=== PATIENT | female | born 1945 | race Caucasian/White ===

== ENCOUNTER 2016-07-28 22:25 | Emergency (ER) | payer OTHER ==
[~2016-07-28] VITALS: Ht 170.2 cm; Wt 107.0 kg
[~2016-07-28 22:25] MED LIST: ACCUPRIL20 MG PO; ACCURETIC 201 TABLE1 PO; ADVAIR 250/501 DISK IH; Advair HFA 45/21 IH; Aspirin E.C. PO; BACTRIM,SEPT1 TABLET PO; DESYREL100 MG PO; HYDROCODON-ACE1 EAC7 PO; Hydrodiuril,Oretic,E PO; K-DUR20 MEQ PO; Keflex PO; LASIX20 MG PO; LASIX40 MG PO; LEXAPRO10 MG PO; LEXAPRO20 MG PO; Lasix PO; Milk Of Magnesia,MOM PO; NAPROSYN500 MG PO; PERCOCET 10/1 TABLET PO; QUINAPRIL-HCTZ1 EAC2 PO; SPIRIVA1 INHALATI IH; TRAZODONE HCL50 MG PO; ZESTORETIC 20-1 EAC1 PO
[2016-07-28 23:04] LABS: HEMATOCRIT 42.3 % (36.0-46.0); MCH 26.6 PG (29.0-34.0); MCHC 30.7 G/DL (30.0-36.0); MCV 86.7 FL (83-99); MEAN PLAT.VOLUME 12.3 uM^3 (9.5-12.4); PLATELET COUNT 269 K/uL (156-360); RBC DIS.WIDTH-CV 13.9 % (11.8-14.6); RBC DIS.WIDTH-SD 43.4 % (39-53); RED BLOOD COUNT 4.88 M/uL (3.80-5.20); WHITE BLOOD COUNT 6.2 K/uL (4.1-10.2)
[2016-07-28 23:14] LABS: CHLORIDE 102 mEq/L (99-109); POTASSIUM 2.9 mEq/L (3.7-5.4); SODIUM 141 mEq/L (136-147)
[2016-07-28 23:16] LABS: GLUCOSE 118 mg/dL (70-99)
[2016-07-28 23:17] LABS: ANION GAP 13 MEQ/L (2-14)
[2016-07-28 23:18] LABS: TOTAL BILIRUBIN 0.9 mg/dL (0.0-1.0)
[2016-07-28 23:19] LABS: ALKALINE PHOSPHATASE 88 IU/L (3-129)
[2016-07-28 23:20] LABS: GFR ESTIMATE (CALCULATED) 43 mL/min/
[2016-07-28 23:21] LABS: UREA NITROGEN (BUN) 20 mg/dL (9-23)
[2016-07-29] MEDS ORDERED: ZOFRAN4 MG PO (01:49)
[2016-07-29 02:40] VITALS: BP 142/75
== END 2016-07-29 03:00 | disposition home or self-care (01) ==
LOC: EME 22:25
DX: R10.9 Unspecified abdominal pain (principal); R19.7 Diarrhea, unspecified; R11.2 Nausea with vomiting, unspecified; E86.0 Dehydration; I11.0 Hypertensive heart disease with heart failure; I50.9 Heart failure, unspecified; J45.909 Unspecified asthma, uncomplicated; K21.9 Gastro-esophageal reflux disease without esophagitis; Z96.653 Presence of artificial knee joint, bilateral
CPT/HCPCS: 74177; 80053; 81003; 83605; 83630; 83690; 85027; 87177; 87493; 87506; 93005; 99281; 99284; J2405; J7030

== ENCOUNTER 2016-08-12 10:59 | Emergency (ER) | payer OTHER ==
[~2016-08-12] VITALS: Ht 170.2 cm; Wt 102.0 kg
[~2016-08-12 10:59] MED LIST changes: +ZOFRAN4 MG PO
[2016-08-12 12:17] LABS: HEMATOCRIT 42.4 % (36.0-46.0); MCHC 33.3 G/DL (30.0-36.0); MCV 90.2 FL (83-99); MEAN PLAT.VOLUME 10.5 uM^3 (9.5-12.4); PLATELET COUNT 222 K/uL (156-360); RBC DIS.WIDTH-CV 13.2 % (11.8-14.6); RBC DIS.WIDTH-SD 42.6 % (39-53)
[2016-08-12 12:24] LABS: WHITE BLOOD COUNT 11.9 K/uL (4.1-10.2)
[2016-08-12 12:35] LABS: CHLORIDE 102 mEq/L (99-109); POTASSIUM 3.7 mEq/L (3.7-5.4); SODIUM 143 mEq/L (136-147)
[2016-08-12 12:37] LABS: GLUCOSE 106 mg/dL (70-99)
[2016-08-12 12:38] LABS: ANION GAP 10 MEQ/L (2-14)
[2016-08-12 12:39] LABS: TOTAL BILIRUBIN 0.7 mg/dL (0.0-1.0)
[2016-08-12 12:41] LABS: ALKALINE PHOSPHATASE 88 IU/L (3-129); GFR ESTIMATE (CALCULATED) 43 mL/min/
[2016-08-12 12:42] LABS: UREA NITROGEN (BUN) 17 mg/dL (9-23)
[2016-08-12 16:48] LABS: ADD MIUA? YES; BILIRUBIN NEGATIVE; BLOOD SMALL; COLOR YELLOW ((YELLOW)); GLUCOSE (STRIP) NEGATIVE; KETONES NEGATIVE; LEUKOCYTES NEGATIVE; NITRITE NEGATIVE; PROTEIN (STRIP) 30; SPECIFIC GRAVITY 1.023 (1.000-1.030); UROBILINOGEN 0.2 MG/DL (0.2-1.0)
[2016-08-12] MEDS ORDERED: ZOFRAN ODT4 MG PO (16:55)
[2016-08-12] MEDS ORDERED: LOMOTIL TABLET1 EACH PO (16:55)
[2016-08-12 17:00] LABS: BACTERIA RARE /HPF; EPITHELIAL CELLS 1+ /HPF; HYALINE CASTS 0-5 /LPF; MUCUS TRACE /LPF; RED BLOOD CELLS 20-30 /HPF (0-5); UCUL ADDED? NO; WHITE BLOOD CELLS 0-5 /HPF (0-5)
[2016-08-12 17:35] VITALS: BP 149/69
== END 2016-08-12 17:48 | disposition home or self-care (01) ==
LOC: EME 10:59
DX: R19.7 Diarrhea, unspecified (principal); Z91.018 Allergy to other foods; J45.909 Unspecified asthma, uncomplicated; I50.9 Heart failure, unspecified; I10 Essential (primary) hypertension; Z96.651 Presence of right artificial knee joint; Z96.652 Presence of left artificial knee joint; Z90.710 Acquired absence of both cervix and uterus
CPT/HCPCS: 74176; 80053; 81003; 85027; 99281; 99285; J3010; J7030

== ENCOUNTER 2016-10-10 18:39 | Emergency (ER) | payer OTHER ==
[~2016-10-10] VITALS: Ht 170.2 cm; Wt 119.5 kg
[~2016-10-10 18:39] MED LIST changes: +LOMOTIL TABLET1 EACH PO; +ZOFRAN ODT4 MG PO
[2016-10-10 19:46] LABS: HEMATOCRIT 40.5 % (36.0-46.0); MCH 29.9 PG (29.0-34.0); MCHC 33.3 G/DL (30.0-36.0); MCV 89.8 FL (83-99); MEAN PLAT.VOLUME 10.3 uM^3 (9.5-12.4); PLATELET COUNT 215 K/uL (156-360); RBC DIS.WIDTH-CV 12.8 % (11.8-14.6); RBC DIS.WIDTH-SD 42.3 % (39-53); RED BLOOD COUNT 4.51 M/uL (3.80-5.20); WHITE BLOOD COUNT 9.2 K/uL (4.1-10.2)
[2016-10-10 19:58] LABS: CHLORIDE 103 mEq/L (99-109); POTASSIUM 3.2 mEq/L (3.7-5.4); SODIUM 143 mEq/L (136-147)
[2016-10-10 20:00] LABS: GLUCOSE 105 mg/dL (70-99)
[2016-10-10 20:01] LABS: ANION GAP 11 MEQ/L (2-14)
[2016-10-10 20:04] LABS: GFR ESTIMATE (CALCULATED) 52 mL/min/
[2016-10-10 20:05] LABS: UREA NITROGEN (BUN) 24 mg/dL (9-23)
[2016-10-10 20:06] LABS: URIC ACID 9.8 mg/dL (3.1-9.2)
[2016-10-10] MEDS ORDERED: COLCHICINE0.6 M1 PO (20:21)
[2016-10-10] MEDS ORDERED: PREDNISONE20 MG PO (20:22)
[2016-10-10] MEDS ORDERED: CLEOCIN300 MG PO (20:22)
[2016-10-10 20:40] VITALS: BP 125/73
== END 2016-10-10 20:41 | disposition home or self-care (01) ==
LOC: EME 18:39
PROVIDERS: Emergency Medicine
DX: M10.9 Gout, unspecified (principal); I10 Essential (primary) hypertension; Z96.653 Presence of artificial knee joint, bilateral
CPT/HCPCS: 80048; 84550; 85027; 99281; 99284; J7512

== ENCOUNTER 2016-10-28 11:25 | Inpatient (IN) | payer OTHER ==
[~2016-10-28] VITALS: Ht 170.2 cm; Wt 117.1 kg
[~2016-10-28 11:25] MED LIST changes: +CLEOCIN300 MG PO; +COLCHICINE0.6 M1 PO; +PREDNISONE20 MG PO
[2016-10-28 12:10] LABS: HEMATOCRIT 40.6 % (36.0-46.0); MCH 30.4 PG (29.0-34.0); MCHC 33.3 G/DL (30.0-36.0); MCV 91.4 FL (83-99); MEAN PLAT.VOLUME 10.6 uM^3 (9.5-12.4); PLATELET COUNT 208 K/uL (156-360); RBC DIS.WIDTH-CV 13.6 % (11.8-14.6); RED BLOOD COUNT 4.44 M/uL (3.80-5.20); WHITE BLOOD COUNT 9.8 K/uL (4.1-10.2)
[2016-10-28 12:21] LABS: CHLORIDE 99 mEq/L (99-109); POTASSIUM 3.2 mEq/L (3.7-5.4); SODIUM 137 mEq/L (136-147)
[2016-10-28 12:23] LABS: GLUCOSE 104 mg/dL (70-99)
[2016-10-28 12:24] LABS: ANION GAP 10 MEQ/L (2-14)
[2016-10-28 12:26] LABS: GFR ESTIMATE (CALCULATED) 43 mL/min/
[2016-10-28 12:27] LABS: UREA NITROGEN (BUN) 29 mg/dL (9-23)
[2016-10-28 12:31] LABS: TROP-I INTERPRETATION NEGATIVE; TROPONIN-I < 0.01 ng/mL (0.0-0.30)
[2016-10-28] MEDS ORDERED: ZITHROMAX Z-PA250 MG PO (14:59)
[2016-10-28] MEDS ORDERED: PREDNISONE50 MG PO (14:59)
[2016-10-28] MEDS ORDERED: CYANOCOBALAM1000 MCG PO (15:33)
[2016-10-28] MEDS ORDERED: LORAZEPAM0.5 MG PO (15:33)
[2016-10-28] MEDS ORDERED: ZESTORETIC 20-1 EAC1 PO (15:33)
[2016-10-28] MEDS ORDERED: VENLAFAXINE HC150 M1 PO (15:33)
[2016-10-28] MEDS ORDERED: ASCORBIC ACID500 M3 PO (15:34)
[2016-10-28] MEDS ORDERED: ADVIL,NUPRIN,M200 MG PO (15:34)
[2016-10-28] MEDS ORDERED: PRISTIQ100 MG PO (15:36)
[2016-10-28 20:30] VITALS: BP 107/59
[2016-10-28 23:40] VITALS: BP 128/58
[2016-10-29 03:00] VITALS: BP 138/58
[2016-10-29 07:00] LABS: EOSINOPHIL (%) 0 % (0-5); HEMATOCRIT 37.8 % (36.0-46.0); IMMATURE GRANULOCYTE (%) 0.5 % (0.0-0.7); INSTRUMENT ABS NEUTROPHIL CT 5.9 K/uL; LYMPHOCYTE COUNT 0.2 K/uL (1.0-2.8); MCH 29.4 PG (29.0-34.0); MCHC 32.3 G/DL (30.0-36.0); MCV 91.1 FL (83-99); MEAN PLAT.VOLUME 10.6 uM^3 (9.5-12.4); MONOCYTE (%) 1.4 % (3-12); MONOCYTE COUNT 0.1 K/uL (0-0.8); NEUTROPHIL (%) 94.4 % (45-76); NEUTROPHIL COUNT 5.9 K/uL (1.8-6.4); PLATELET COUNT 180 K/uL (156-360); RBC DIS.WIDTH-CV 13.5 % (11.8-14.6); RBC DIS.WIDTH-SD 45.3 % (39-53); RED BLOOD COUNT 4.15 M/uL (3.80-5.20)
[2016-10-29 07:02] LABS: WHITE BLOOD COUNT 6.3 K/uL (4.1-10.2)
[2016-10-29 07:07] LABS: Estimated Average Glucose 103 mg/dL (70-123); HEMOGLOBIN A1c (GLYCOHEMOGLOB) 5.2 % HGB (Below 5.7)
[2016-10-29 07:21] LABS: ALKALINE PHOSPHATASE 67 IU/L (3-129); ANION GAP 11 MEQ/L (2-14); CHLORIDE 100 MEQ/L (99-109); GFR ESTIMATE (CALCULATED) 47 mL/min/; HDL CHOLESTEROL 47 MG/DL (Desirable>=50); LDL CHOLESTEROL 102 mg/dL (Desirable<100); NON-HDL CHOLESTEROL 113 mg/dL (Desirable<160); POTASSIUM 3.5 MEQ/L (3.7-5.4); SAMPLE HEMOLYSIS CHECK 0; SAMPLE ICTERIC CHECK 0; SAMPLE LIPEMIA CHECK 0; SODIUM 139 MEQ/L (136-147); TOTAL BILIRUBIN 0.5 MG/DL (0.0-1.0); TOTAL CHOLESTEROL 160 mg/dL (Desirable<200); TRIGLYCERIDES 57 MG/DL (Normal: <150); UREA NITROGEN (BUN) 27 mg/dL (9-23)
[2016-10-29 07:25] LABS: GLUCOSE 164 mg/dL (70-99)
[2016-10-29 08:51] VITALS: BP 120/54
[2016-10-29 11:44] LABS: TROP-I INTERPRETATION NEGATIVE; TROPONIN-I < 0.01 ng/mL (0.0-0.30)
[2016-10-29 17:00] VITALS: BP 113/51
[2016-10-29 19:40] VITALS: BP 102/57
[2016-10-29 19:46] LABS: TROP-I INTERPRETATION NEGATIVE; TROPONIN-I < 0.01 ng/mL (0.0-0.30)
[2016-10-29 23:00] VITALS: BP 117/58
[2016-10-30 01:07] LABS: TROP-I INTERPRETATION NEGATIVE; TROPONIN-I < 0.01 ng/mL (0.0-0.30)
[2016-10-30 03:15] VITALS: BP 117/54
[2016-10-30 07:11] VITALS: BP 135/54
[2016-10-30 07:13] LABS: ANION GAP 11 MEQ/L (2-14); CHLORIDE 96 MEQ/L (99-109); GFR ESTIMATE (CALCULATED) 43 mL/min/; GLUCOSE 147 mg/dL (70-99); POTASSIUM 3.5 MEQ/L (3.7-5.4); SAMPLE HEMOLYSIS CHECK 0; SAMPLE ICTERIC CHECK 0; SAMPLE LIPEMIA CHECK 0; SODIUM 134 MEQ/L (136-147); UREA NITROGEN (BUN) 36 mg/dL (9-23)
[2016-10-30 11:35] VITALS: BP 100/52
[2016-10-30 15:35] VITALS: BP 118/53
[2016-10-30 19:00] VITALS: BP 105/51
[2016-10-30 23:00] VITALS: BP 115/59
[2016-10-31 03:30] VITALS: BP 141/65
[2016-10-31 06:32] LABS: ANION GAP 10 MEQ/L (2-14); CHLORIDE 99 MEQ/L (99-109); GFR ESTIMATE (CALCULATED) 34 mL/min/; GLUCOSE 173 mg/dL (70-99); POTASSIUM 3.5 MEQ/L (3.7-5.4); SAMPLE HEMOLYSIS CHECK 0; SAMPLE ICTERIC CHECK 0; SAMPLE LIPEMIA CHECK 0; SODIUM 136 MEQ/L (136-147); UREA NITROGEN (BUN) 54 mg/dL (9-23)
[2016-10-31 09:20] VITALS: BP 100/53
[2016-10-31] MEDS ORDERED: DELTASONE20 M1 PO (11:29)
[2016-10-31] MEDS ORDERED: DOXYCYCLINE HY100 MG PO (11:29)
[2016-10-31] MEDS ORDERED: STIOLTO RESPIMAT4 GM IH (11:29)
[2016-10-31] MEDS ORDERED: CARDIZEM CD180 MG PO (11:30)
[2016-10-31 12:09] VITALS: BP 110/50
== END 2016-10-31 14:47 | disposition home or self-care (01) | DRG 192 ==
LOC: EME 11:25 → 4EAST 16:30 → EDOF 16:30 → 4EAST 21:20
PROVIDERS: Family Medicine
DX: J44.1 Chronic obstructive pulmonary disease with (acute) exacerbation (principal); I48.91 Unspecified atrial fibrillation; I10 Essential (primary) hypertension; E04.2 Nontoxic multinodular goiter; F41.8 Other specified anxiety disorders; M19.90 Unspecified osteoarthritis, unspecified site; R55 Syncope and collapse; E78.5 Hyperlipidemia, unspecified; E87.6 Hypokalemia; R73.9 Hyperglycemia, unspecified; R41.82 Altered mental status, unspecified
CPT/HCPCS: 70450; 71020; 71275; 80048; 80053; 80061; 83036; 84439; 84443; 84484; 85025; 85027; 93005; 93306; 93880; 94640; 94640 76; 94760; 99202; 99281; 99285; J1956; J2930; J7512

== ENCOUNTER 2016-11-27 18:18 | Emergency (ER) | payer OTHER ==
[~2016-11-27] VITALS: Ht 170.2 cm; Wt 125.8 kg
[~2016-11-27 18:18] MED LIST changes: +ADVIL,NUPRIN,M200 MG PO; +ASCORBIC ACID500 M3 PO; +CARDIZEM CD180 MG PO; +CYANOCOBALAM1000 MCG PO; +DELTASONE20 M1 PO; +DOXYCYCLINE HY100 MG PO; +LORAZEPAM0.5 MG PO; +PREDNISONE50 MG PO; +PRISTIQ100 MG PO; +STIOLTO RESPIMAT4 GM IH; +VENLAFAXINE HC150 M1 PO; +ZITHROMAX Z-PA250 MG PO
[2016-11-27 18:59] LABS: HEMATOCRIT 36.1 % (36.0-46.0); MCH 30.4 PG (29.0-34.0); MCV 92.1 FL (83-99); MEAN PLAT.VOLUME 9.3 uM^3 (9.5-12.4); PLATELET COUNT 242 K/uL (156-360); RBC DIS.WIDTH-SD 47.1 % (39-53); RED BLOOD COUNT 3.92 M/uL (3.80-5.20); WHITE BLOOD COUNT 10.2 K/uL (4.1-10.2)
[2016-11-27 19:05] LABS: CHLORIDE 107 mEq/L (99-109); SODIUM 142 mEq/L (136-147)
[2016-11-27 19:07] LABS: GLUCOSE 91 mg/dL (70-99)
[2016-11-27 19:08] LABS: ANION GAP 6 MEQ/L (2-14)
[2016-11-27 19:11] LABS: GFR ESTIMATE (CALCULATED) > 59 mL/min/; UREA NITROGEN (BUN) 15 mg/dL (9-23)
[2016-11-27] MEDS ORDERED: NYSTATIN60 GM TP (20:19)
[2016-11-27] MEDS ORDERED: NYSTATIN-TRIAMC15 G1 TP (20:19)
[2016-11-27 20:29] VITALS: BP 129/81
== END 2016-11-27 20:26 | disposition home or self-care (01) ==
LOC: EME 18:18
PROVIDERS: Physician Assistant
DX: R60.0 Localized edema (principal); I87.2 Venous insufficiency (chronic) (peripheral); B37.2 Candidiasis of skin and nail; Z91.19 Patient's noncompliance with other medical treatment and regimen; J45.909 Unspecified asthma, uncomplicated; I11.0 Hypertensive heart disease with heart failure; I50.9 Heart failure, unspecified; K21.9 Gastro-esophageal reflux disease without esophagitis; Z96.653 Presence of artificial knee joint, bilateral; Z87.891 Personal history of nicotine dependence
CPT/HCPCS: 80048; 83880; 85027; 99281; 99284

== ENCOUNTER 2017-01-02 21:48 | Observation (INO) | payer OTHER ==
[~2017-01-02] VITALS: Ht 170.2 cm; Wt 117.4 kg
[~2017-01-02 21:48] MED LIST changes: +NYSTATIN-TRIAMC15 G1 TP; +NYSTATIN60 GM TP
[2017-01-02 22:34] LABS: HEMATOCRIT 39.9 % (36.0-46.0); MCH 30.4 PG (29.0-34.0); MCHC 33.3 G/DL (30.0-36.0); MCV 91.3 FL (83-99); MEAN PLAT.VOLUME 10.2 uM^3 (9.5-12.4); PLATELET COUNT 207 K/uL (156-360); RBC DIS.WIDTH-CV 12.8 % (11.8-14.6); RED BLOOD COUNT 4.37 M/uL (3.80-5.20); WHITE BLOOD COUNT 9.9 K/uL (4.1-10.2)
[2017-01-02 22:44] LABS: CHLORIDE 104 mEq/L (99-109); POTASSIUM 3.4 mEq/L (3.7-5.4); SODIUM 142 mEq/L (136-147)
[2017-01-02 22:45] LABS: GLUCOSE 93 mg/dL (70-99)
[2017-01-02 22:47] LABS: ANION GAP 12 MEQ/L (2-14)
[2017-01-02 22:49] LABS: GFR ESTIMATE (CALCULATED) 31 mL/min/
[2017-01-02 22:50] LABS: UREA NITROGEN (BUN) 26 mg/dL (9-23)
[2017-01-02 22:54] LABS: TROP-I INTERPRETATION NEGATIVE; TROPONIN-I < 0.01 ng/mL (0.0-0.30)
[2017-01-03] MEDS ORDERED: STIOLTO RESPIMAT4 GM IH (00:46)
[2017-01-03] MEDS ORDERED: B COMPLEX #11 EACH PO (00:47)
[2017-01-03] MEDS ORDERED: VENTOLIN HFA18 GM IH (00:48)
[2017-01-03] MEDS ORDERED: PERCOCET 5/31 TABLET PO (00:48)
[2017-01-03] MEDS ORDERED: XARELTO20 MG PO (00:48)
[2017-01-03 02:00] VITALS: BP 117/62
[2017-01-03 04:19] VITALS: BP 131/59
[2017-01-03 07:36] VITALS: BP 111/56
[2017-01-03 08:50] LABS: HEMATOCRIT 36.6 % (36.0-46.0)
[2017-01-03 10:37] VITALS: BP 130/63
[2017-01-03 11:45] LABS: ANION GAP 7 MEQ/L (2-14); CHLORIDE 105 MEQ/L (99-109); GFR ESTIMATE (CALCULATED) 36 mL/min/; GLUCOSE 109 mg/dL (70-99); POTASSIUM 3.7 MEQ/L (3.7-5.4); SAMPLE HEMOLYSIS CHECK 0; SAMPLE ICTERIC CHECK 0; SAMPLE LIPEMIA CHECK 0; SODIUM 142 MEQ/L (136-147); TROP-I INTERPRETATION NEGATIVE; TROPONIN-I 0.01 ng/mL (0.0-0.30); UREA NITROGEN (BUN) 25 mg/dL (9-23)
[2017-01-03] MEDS ORDERED: NORVASC10 MG PO (14:31)
== END 2017-01-03 15:18 | disposition home or self-care (01) ==
LOC: EME 21:48 → EDOF 01-03 00:38 → 5WEST 01-03 01:49
PROVIDERS: Internal Medicine; Physician Assistant Medical
DX: M25.512 Pain in left shoulder (principal); M19.012 Primary osteoarthritis, left shoulder; N17.9 Acute kidney failure, unspecified; E86.0 Dehydration; G89.29 Other chronic pain; M54.9 Dorsalgia, unspecified; I10 Essential (primary) hypertension; E78.5 Hyperlipidemia, unspecified; E09.9 Drug or chemical induced diabetes mellitus without complications; T38.0X5A Adverse effect of glucocorticoids and synthetic analogues, initial encounter; J44.9 Chronic obstructive pulmonary disease, unspecified; I48.0 Paroxysmal atrial fibrillation; Z79.01 Long term (current) use of anticoagulants; E04.2 Nontoxic multinodular goiter; K21.9 Gastro-esophageal reflux disease without esophagitis; F41.8 Other specified anxiety disorders; Z96.611 Presence of right artificial shoulder joint; M06.9 Rheumatoid arthritis, unspecified; Z96.653 Presence of artificial knee joint, bilateral; Z87.891 Personal history of nicotine dependence; M75.42 Impingement syndrome of left shoulder; E87.6 Hypokalemia; Z91.018 Allergy to other foods
CPT/HCPCS: 71020; 73030; 80048; 84484; 85014; 85018; 85027; 93005; 94640; 99202; 99281; 99285; G0378; G8978 GP CH; G8979 GP CH; G8980 GP CH; G8987 GO CH; G8988 GO CH; J2270; J3480